=== PATIENT | female | born 1955 | race Caucasian/White ===

== ENCOUNTER → 2023-08-29 | Outpatient (CLI) | payer MEDICARE ==
--- NOTE | 2023-08-29 13:37 | CT ---
EXAMINATION TYPE: CT right knee - [facility] Protocol DATE OF EXAM: 08/29/2023 COMPARISON: None HISTORY: PRE OP [facility] KNEE. CT DLP: 515 mGycm Preoperative [facility] knee planning CT was performed of the right knee. FINDINGS: Severe degenerative narrowing medial tibiofemoral joint space with subchondral sclerosis and subchond ral cyst formation. Marginal bony spurs noted about the tibia and distal femur. Mild to moderate swan llofemoral joint space narrowing. Mild degenerative narrowing of the hip joints. Ankles are unremarka ble. IMPRESSION: OSTEOARTHRITIS RIGHT KNEE
== END | disposition home or self-care (01) ==
LOC: RADCTMAIN 11:41
PROVIDERS: ATTEND Orthopaedic Surgery
DX: M17.11 Unilateral primary osteoarthritis, right knee (principal); M21.161 Varus deformity, not elsewhere classified, right knee